=== PATIENT | female | born 1950 | race Hispanic/Latino ===

== ENCOUNTER 2020-02-25 07:59 | Inpatient (IN) | payer MEDICARE, MEDICAID ==
[~2020-02-25] VITALS: Ht 154.9 cm; Wt 67.1 kg
[~2020-02-25 07:59] MED LIST: AMLODIPINE5 MG PO; METHOCARBAM500 MG PO; NAPROSYN500 MG PO
[2020-02-25] MEDS ORDERED: CALCIUM + D PO (11:37)
[2020-02-25] MEDS ORDERED: ASPIRIN81 MG PO (11:37)
[2020-02-25] MEDS ORDERED: ROSUVASTATIN CA10 MG PO (11:38)
[2020-02-25] MEDS ORDERED: MELOXICAM7.5 MG PO (11:38)
[2020-02-25] MEDS ORDERED: TRAMADOL HCL50 MG PO (11:39)
[2020-03-03] VITALS (9 sets, daily range): BP systolic 93–135; BP diastolic 49–74
--- NOTE | 2020-03-03 10:20 | NUR ---
TELEPHONE REPORT TAKEN BY RE DIAZ. PT ARRIVED TO [facility] ROOM 269 AT 1020 VIA BED WITH OR AND [facility] NURSE IN STABLE CONDITION. ALERT AND ORIENTED X 3. C/O 10/10 RIGHT HIP PAIN; DRESSING TO RIGHT HIP CDI; WEDGE IN PLACE BETWEEN LEGS AND SCD INTACT TO LLE. RESPIRATIONS EVEN AND UNLABORED ON OXYGEN 2L VIA NC. LR INFUSING UPON ARRIVAL TO 20G IV SITE TO LAC. LUNGS ARE CLEAR; HEART RATE. ABDOMEN SOFT NONTENDER; PULSES STRONG. ORIENTED TO ROOM AND CALL LIGHT SYSTEM. PLAN OF CARE DISCUSSED. PT ENCOARAGED TO VERBALIZE CONCERNS. STATES UNDERSTANDING. SAFETY MEASUERES IN PLACE. CALL LIGHT WITHIN REACH.
--- NOTE | 2020-03-03 11:45 | NUR ---
PATIENT RESTING IN BED AT THIS TIME PATIENT STATES PAIN MEDICATION WORKING AND HER LEVEL OF PAIN IS ONLY A 4 OUT OF A SCALE 0F 0-10. PATIENT ABDUCTOR IN PLACE, SIDERAILS UP X 2 CALL LIGHT WITHIN REACH. INCISIONAL DRESSING DRY AND INTACT AT THIS TIME SCD'S ON.
--- NOTE | 2020-03-03 12:15 | NUR ---
PATIENT AWAKE AND ALERT AT THIS TIME AND EATING LUNCH WITHOUT DIFFICULTY. PATIENT STATES SHE DOESN'T HAVE PAIN AT THIS TIME. DRESSING REMAINS DRY AND INTACT AND ABDUCTOR IN PLACE. SIDERAILS UP X2 CALL LIGHT IS WITHIN REACH.
--- NOTE | 2020-03-03 13:29 | NUR ---
OXYGEN REMOVED AFTER 3 HOURS POST OP WITH GOOD OXYGEN SATURATIONS. PT NOW RESTING ON ROOM AIR. POST OP VITALS COMPLETE.
--- NOTE | 2020-03-03 19:50 | NUR ---
EMERGENCY MANAGEMENT DIRECTOR REPORTED PT'S IV SITE APPEARS INFILTRATED AND THAT THE PT DENIES PAIN AT SITE. IV WAS REMOVED, TISSUE AT SITE APPEARS EDEMATOUS, WARM COMPRESS PROVIDED.
--- NOTE | 2020-03-03 20:15 | NUR ---
MEDICATIONS ADMINISTERED AND ASSESSMENT COMPLETED. TWO ATTEMPTS WERE MADE TO OBTAIN IV SITE/UNABLE TO OBTAIN, WILL ASK OTHER NURSE ON UNIT TO ATTEMPT SITE. PT REPORTS PAIN LEVEL AT 1/10 ON PAIN SCALE. DENIES NEED OF PAIN MEDICATION. SHE ALSO DENIES PAIN AT IV INFILTRATION SITE TO LEFT ARM, APPEARS MODERATE SWELLING AT THIS ITME. I ASSISTED HER TO REPOSITION IN THE BED FOR COMFORT. LIGHTS TURNED LOW AND PT ENCOURAGED TO CALL NEEDS ARISE.
[2020-03-04 00:06] VITALS: BP 110/68
[2020-03-04 04:06] VITALS: BP 104/62
[2020-03-04 04:57] LABS: HEMATOCRIT 28.8 % (37.0-47.0); HEMOGLOBIN 10.1 g/dl (12.0-16.0)
[2020-03-04 07:00] VITALS: BP 110/62
--- NOTE | 2020-03-04 07:00 | NUR ---
PATIENT RESTINGN IN BED ALERT AND ORIENTED AT THIS TIME. CALL LIGHT WITHIN REACH. DENIES ANY NEEDS AND OR PAIN AT THIS TIME. SIDERAILS UP X 2 CALL LIGHT WITHIN REACH. DRESSING TO R HIP DRY AND INTACT. INDUSTRIAL MAINTENANCE REPAIRER HELPER DONE AT THIS TIME SEE INTERVENTIONS.
--- NOTE | 2020-03-04 12:17 | NUR ---
PATIENT IN BED AT THIS TIME RESTING AND STATES NO NEEDS AT THIS TIME ABD. PILLOW IN PLACE DRESSING DRY AND INTACT.
--- NOTE | 2020-03-04 13:25 | NUR ---
PLEASE SEE INITIAL EVAL ADDENDED TODAY FOR FUNCTIONAL ASSESSMENT. PHYS. THERAPIST ALSO PROVIDED POST-OP THEREX WITH A HANDOUT THAT WAS DISCUSSED IN DETAIL. EXERCISES INCLUDE GLUTE AND QUADS SETTING, HEEL SLIDES, ANKLE PUMPS AND ACTIVE HIP ABDUCTION TO 30 DEG IN SUPINE. PT PERFORMED 5-10 REPS OF ALL EXERCISES. TDA INCLUDES [id number] X 5 REPS WITH REST PERIODS NECESSARY. SHE ALSO PERFORMED STANDING WEIGHT SHIFTING WITH A WALKER PRIOR TO GT/AMBULATION ON BEDSIDE. PT REPORTS PAIN ON R HIP BUT WAS TOLERABLE. P.T. WILL SEE HER AGAIN THIS PM.
--- NOTE | 2020-03-04 15:10 | NUR ---
Pt.NOTE Patient in semi-fowlers position lidya entered room. Bessy (PT) was present in room. Patient agreed to participate in therapy session which was to gait train. Patient from semi-fowlers>sit (MOD A) right lower extremity to clear bed side. sitting balance adequate no loss of balance noted. sit>stand (MOD A) verbal cues for correct hand ositioning to ascend to a standing position. as patient standing urinary incontinence began, patient sat down and rested about 2 minutes. Attempted to gait train and urinary incontinence persude. Stand>sit (MIn A), sit>supine (MAX) to clear lower extrmities over bed side. tray table call hendrix by patient side as exited room. Made nurses aware of incontinenc problem. AMPAC 6 score of 10
--- NOTE | 2020-03-04 15:42 | NUR ---
PATIENT REQUESTING PAIN MEDICATION AT THIS TIME PATIENT STATES HER PAIN IS A 4 OUT OF A SCALE OF 0-10. PERCOCET 10/325MG GIVEN AT THIS TIME. ALL SAFETY MEASURES IN PLACE CALL LIGHT WITHIN REACH.
--- NOTE | 2020-03-04 15:55 | NUR ---
PATIENT RESTING IN BED AT THIS TIME STATES PAIN MEDICATION GIVE PREVIOUSLY IS WORKING AND DENIES ANY PAIN. PATIENT DRESSING DRY AND INTACT ICE PACK APPLIED TO SITED. SIDERAILS UP X 2 CALL LIGHT WITHIN REACH. WEDGE IN PLACE.
[2020-03-04 16:00] VITALS: BP 107/63
[2020-03-04 19:37] VITALS: BP 106/65
--- NOTE | 2020-03-04 21:01 | NUR ---
PT MEDICATED ORDERS PROVIDE AND ASSESSMENT COMPLETED AT THIS TIME. WEDGE IS IN PLACE BETWEEN LEGS, DRESSING CDI. ICEPACK PROVIDED TO R.HIP. CIRCULATION IS INTACT TO BLE WITH STRONG PEDAL PULSES. PT C/O PT NOT WALKING HER TODAY BECAUSE SHE URINATED WHEN THEY STOOD HER UP. I INFORMED HER THAT WE CAN PLACE A BRIEF ON HER FOR PHYSICAL THERAPY AND TO WALK TOMORROW, SHE AGREED TO THIS POC. SNACK PROVIDED PER REQUEST. CALL LIGHT IN REACH AND PT ENCOURAGED TO CALL NEEDS ARISE.
--- NOTE | 2020-03-05 01:35 | NUR ---
PT SLEEPING, BUT AWOKE TO MY ENTERING ROOM, DENIES ANY NEEDS. PUREWICK SUCTIONING TO LOW CONTIN SUCTION CLEAR YELLOW URINE. WEDGE IN PLACE AND CIRCULATION COMFIRMED.
[2020-03-05 04:00] VITALS: BP 96/60
--- NOTE | 2020-03-05 05:00 | NUR ---
PT FOUND WITH PUREWICK OUT OF PLACE AND URINE ON THE BED. PT CLEANED OF INCONTINENT URINE AND BEDDING CHANGED AT THIS TIME. PUREWICK REPLACED AND DRAINING TO CONTINUOUS LOW SUCTION. PT REPOSITIONED. ICE PACK TO R.HIP. JUICE PROVIDED PER REQUEST. PT DENIES ANY PAIN AT ALL AT THIS TIME. DRESSING TO R.HIP CDI. ENCOURAGED HER TO CALL NEEDS ARISE.
[2020-03-05 06:37] LABS: HEMATOCRIT 28.9 % (37.0-47.0); HEMOGLOBIN 9.8 g/dl (12.0-16.0); MEAN CELL VOLUME 91.7 fL CALC (80.0-100.0); MEAN CORPUSCULAR HGB 31.1 pG CALC (26.0-32.0); MEAN CORPUSCULAR HGB CONC 33.9 g/dL CAL (32.0-36.0); RED BLOOD COUNT 3.15 mill/uL (4.20-5.60); RED CELL DISTRI WIDTH 12.2 % (11.5-15.5)
[2020-03-05 07:00] VITALS: BP 114/58
--- NOTE | 2020-03-05 07:00 | NUR ---
PATIENT LAYING IN BED AT THIS TIME DENIES ANY PAIN AT THIS MOMENT STATES ITS A 0 OUT OF PAIN SCALE OF 0/10. PATIENT HAS PURWICK IN PLACE DRAINING CLEAR YELLOW URINE. ABDUCTOR WEDGE IN PLACE. R HIP DRESSING DRY AND INTACT.
[2020-03-05 07:02] LABS: ALKALINE PHOSPHATASE 89 u/l (38-126); ANION GAP 9 (6-22 (CALC)); BUN 11 mg/dL (8-23); BUN/CREATININE RATIO 20 (12-20 (CALC)); CARBON DIOXIDE 24 mmol/l (22-30); CHLORIDE 105 mmol/l (95-108); CREATININE 0.5 mg/dL (0.5-1.0); GFR > 60 ML/MIN (>=60 (CALC)); GFR FOR AFR.AMER. > 60 ML/MIN (>=60 (CALC)); POTASSIUM 3.7 mmol/l (3.5-5.1); SGOT/AST 22 u/l (9-36); SODIUM 135 mmol/l (137-146)
[2020-03-05 07:05] LABS: ALBUMIN 2.9 g/dL (3.2-5.0); BILIRUBIN, TOTAL 0.6 mg/dL (0.0-1.4); TOTAL PROTEIN 5.6 g/dL (6.3-8.2)
[2020-03-05 10:18] LABS: HEMATOCRIT 30.2 % (37.0-47.0); HEMOGLOBIN 10.3 g/dl (12.0-16.0)
--- NOTE | 2020-03-05 11:38 | NUR ---
AM TX- PT WAS SEEN FOR TDA AND GT THIS AM. PT DID BETTER AND WAS ABLE TO PERFORM BED MOB/TRANSITIONS SUPINE<>SIT, SIT<>STAND WITH MIN A AND VERBAL CUES TO ENSURE ADHERENCE TO HIP PRECAUTIONS. PT DID [id number] PUSHING HANDS ON BED X 10 REPS WITH NOTICEABLE IMPROVEMENT ON IMMEDIATE STANDING BALANCE. SHE THEN AMBULATED BEDSIDE TO HALLWAY X ~50 FT X 2 W/ RW, CGA AND VERBAL CUES. INSTRUCTED PT ON CORRECT GAIT AND POSTURE; AND PROPER TURNING. PT WAS EXCELLENT IN FOLLOWING INSTRUCTIONS. DENIED PAIN ON R HIP DURING WB ACTIVITIES AND AMBULATION. SHE RETURNED TO HER ROOM AND WAS ENCOURAGED TO SIT IN THE CHAIR WHILE PERFORMING LAQ X 7 SEC HOLD X 10 REPS X 3 SETS AND SEATED HEEL SLIDES. LEFT PT WITH CALL LIGHT WITHIN REACH. [facility]: 14 POINTS PT MAY BENEFIT FROM SHORT-TERM IRF PRIOR TO DC HOME WITH HOME HEALTH P.T. FOR GAIT TRAINING AND GEN. CONDITIONING.
[2020-03-05] MEDS ORDERED: ASPIRIN ADULT325 MG PO (12:12)
--- NOTE | 2020-03-05 12:15 | NUR ---
PATIENT IN BED AT THIS TIME R HIP DRESSING CHANGED INCISION LINE INTACT AND APPROXIMATE 22 STAPLE INTACT AND SITE WITHOUT SIGNS OF INFECTION AT THIS TIME. XEROFROM DRESSING AND TELFA PADS APPLIED AND ABD PADS ON FOR SUPPORT. PATIENT TOLERATED DRESSING CHANGE WITHOUT PAIN AND DENIES PAIN OR ANY NEEDS AT THIS TIME. CALL LIGHT WITHIN REACH.
[2020-03-05 16:00] VITALS: BP 111/59
--- NOTE | 2020-03-05 16:07 | NUR ---
PATIENT RESTING IN BED AT THIS TIME DENIES ANY NEEDS AND STATES SHE HAS NO PAIN CURRENTLY. DRESSING TO R HIP DRY AND INTACT SIDERAILS UP CALL LIGHT WITHIN REACH.
--- NOTE | 2020-03-05 17:02 | NUR ---
PM TX- PT PERFORMED BED MOB TRANSITIIONS WITH MIN A TO CGA ADHERING TO HIP POST-OP PRECAUTIONS. PROVIDED CGA AND VERBAL CUES TO PERFORM SUPINE<>SIT AND SIT<>STAND. PT AMBULATED IN THE HALLWAY W/ A STANDARD WALKER AND CGA X 70 FT X 2 WITH CONSTANT VERBAL CUEING ON PROPER GAIT PATTERN. PT DENIES PAIN ON HIP DURING WB ACTIVITIES AND WAS FEELING OPTIMISTIC ON TRANSFERRING TO IRF. PT RETURNED TO HER ROOM AND REQUESTED TO LAY IN THE BED. ABDUCTOR WAS PUT IN PLACE, CALL RYAN PLACED BESIDE HER. AMPAC: 15 POINTS
--- NOTE | 2020-03-05 18:07 | NUR ---
PATIENT D/C AT THIS TIME. PATIENT VERBALIZES D/C INSTRUCTIONS AT THIS TIME.
[2020-03-05 19:13] VITALS: BP 120/65
--- NOTE | 2020-03-05 20:05 | NUR ---
PHYSICAL ASSESMENT COMPLETE. PT CURRENTLY DENIES PAIN OR DISCOMFORT. SCHEDULED MEDICATIONS AND PRN MEDICATION ADMINISTERED, SEE E-MAR. PT DENIES ANY NEEDS AT THIS TIME. PLAN OF CARE REVIEWED, PT DENIES QUESTIONS, VERBALIZES UNDERSTANDING. PT WAITING FOR TRANSPORTATION TO [facility] AT MIDNIGHT. ITEMS WITHIN REACH, BED LOCKED IN LOW POSITION W/ BEDRAILS UP X2. CALL RYAN WITHIN REACH, AGREES TO CALL PRN.
--- NOTE | 2020-03-05 23:25 | NUR ---
Discharge instructions given. Patient verbalizes understanding of same. Discharged in stable condition via Medical Transport to [facility] with *Other. All belongings sent with pt.
== END 2020-03-05 23:25 | DRG 470 ==
LOC: MS2 03-03 06:09
PROVIDERS: Nurse Practitioner Family; Orthopaedic Surgery; ADMIT Internal Medicine; ATTEND Internal Medicine
PROC: 0SR903A Replacement of Right Hip Joint with Ceramic Synthetic Substitute, Uncemented, Open Approach (ICD-10-PCS; principal; 2020-03-03)
DX: M16.11 Unilateral primary osteoarthritis, right hip (principal); I10 Essential (primary) hypertension; E78.5 Hyperlipidemia, unspecified; Z20.828 Contact with and (suspected) exposure to other viral communicable diseases
CPT/HCPCS: J0131; J2710